=== PATIENT | female | born 1980 | race African-American/Black ===

== ENCOUNTER 2017-08-02 08:54 | Observation (INO) | payer MEDICAID | END 2017-08-02 10:26 | disposition home or self-care (01) | LOC: L&D 08:54 | PROVIDERS: ADMIT Specialist; ATTEND Specialist | DX: O26.893 Other specified pregnancy related conditions, third trimester (principal); R10.9 Unspecified abdominal pain; Z3A.35 35 weeks gestation of pregnancy | CPT/HCPCS: 99281; G0378 ==

== ENCOUNTER 2019-02-10 08:40 | Inpatient (IN) | payer MEDICAID ==
[~2019-02-10] VITALS: Ht 157.5 cm; Wt 62.6 kg
[~2019-02-10 08:40] MED LIST: PNV1TABL76 MT
[2019-02-10] MEDS ORDERED: NALOXONE HCL 0.4 MG/ML 1ML VIAL IM PRN (09:30)
[2019-02-10] MEDS ORDERED: CARBOPROST TROMETHAMINE 250 MCG/ML AMPUL IM PRN (09:30)
[2019-02-10] MEDS ORDERED: DEXT 5%/LR + PITOCIN 20UNITS/L 1,000 ML IV PRN (09:30)
[2019-02-10] MEDS ORDERED: LIDOCAINE HCL 1% 20ML VIAL (Pyxis) INJ INFIL PRN (09:30)
[2019-02-10] MEDS ORDERED: MISOPROSTOL 200MCG TABLET VG PRN (09:30)
[2019-02-10] MEDS ORDERED: METHYLERGONOVINE MALEATE 0.2 MG/ML IM PRN (09:30)
[2019-02-10] MEDS: LACTATED RINGERS 1,000 ML IV SCH ×3 (09:44→22:01)
[2019-02-10] MEDS ORDERED: MAGNESIUM 20 G PREMIX (L & D) 500 ML IV SCH (09:54)
[2019-02-10] MEDS ORDERED: MAGNESIUM 4 G PREMIX 100 ML IV SCH (10:00)
[2019-02-10] MEDS: BETAMETHASONE ACET/BETAMET 30 MG/5 ML VIAL IM SCH (10:09)
[2019-02-10 10:15] LABS: BASOPHILS % 0.3 % (0.0-2.0); EOSINOPHILS % 0.6 % (0.0-5.0); HEMATOCRIT. 34.4 % (36.0-48.0); HEMOGLOBIN. 11.5 g/dL (12.0-16.0); MEAN CORPUSCULAR HEMOGLOBIN 27.7 pg (28.0-32.0); MEAN CORPUSCULAR VOLUME 82.6 fL (81.0-99.0); MEAN PLATELET VOLUME 9.9 fl (7.4-10.4); MONOCYTES % 7.4 % (2.0-8.0); NEUTROPHILS % 72.7 % (40.0-76.0); PLATELET 316 x1000/uL (130-400); RED BLOOD CELL COUNT 4.16 mill/uL (4.2-5.4); RED CELL DISTRIBUTION WIDTH 13.4 % (11.6-14.6)
[2019-02-10] MEDS ORDERED: CLINDAMYCIN 900 MG PREMIX 50 ML IV SCH (10:15)
[2019-02-10 10:21] LABS: CLARITY URINE CLOUDY (CLEAR); COLOR URINE YELLOW (YELLOW); KETONES URINE NEGATIVE (NEGATIVE); LEUKOCYTE ESTERASE URINE TRACE (NEGATIVE); NITRITE URINE NEGATIVE (NEGATIVE); OCCULT BLOOD URINE NEGATIVE (NEGATIVE); PROTEIN URINE 2+ (NEGATIVE); SPECIFIC GRAVITY URINE 1.014 (1.005-1.030); UROBILINOGEN URINE 0.2 E.U./dL (0.2-1.0)
[2019-02-10 10:23] LABS: CHLORIDE 105 mEq/L (98-107)
[2019-02-10 10:24] LABS: INR 0.9; PARTIAL THROMBOPLASTIN TIME 28.3 sec (23.4-31.0); PROTHROMBIN TIME 9.4 sec (9.6-11.0)
[2019-02-10] MEDS ORDERED: MAGNESIUM SULFATE 20 GM in DEXT 5% WATER 460 ML IV ONE (10:30)
[2019-02-10 10:39] LABS: *AMPHETAMINES SCREEN URINE NEGATIVE (NEGATIVE); *BARBITURATES SCREEN URINE NEGATIVE (NEGATIVE)
[2019-02-10 10:40] LABS: *BENZODIAZEPINES SCREEN URINE NEGATIVE (NEGATIVE); *COCAINE SCREEN URINE NEGATIVE (NEGATIVE); METHADONE URINE SCREEN NEGATIVE (NEGATIVE); OPIATES URINE SCREEN NEGATIVE (NEGATIVE); PHENCYCLIDINE URINE SCREEN NEGATIVE (NEGATIVE)
[2019-02-10 11:05] LABS: CANNABINOID URINE SCREEN PRESUMTIVE POSITIVE (NEGATIVE)
[2019-02-10] MEDS: AZITHROMYCIN 500 MG in DEXT 5% WATER 250 ML IV SCH (12:17)
[2019-02-10 13:28] LABS: HEPATITIS B SURFACE ANTIGEN NEGATIVE
[2019-02-10] MEDS: CLINDAMYCIN 600MG PREMIX 50 ML IV SCH (18:21)
[2019-02-10] MEDS ORDERED: DEXTROSE 50% WATER 50ML SYRINGE IV PRN (19:00)
[2019-02-10] MEDS: BUTORPHANOL TARTRATE 2 MG/ML VIAL IV PRN (20:58)
[2019-02-10] MEDS: INSULIN LISPRO 100 UNITS/ML SUBCUT SCH (21:00)
[2019-02-11] MEDS: AZITHROMYCIN 500 MG in DEXT 5% WATER 250 ML IV SCH (00:26)
[2019-02-11] MEDS ORDERED: MAGNESIUM 2 G PREMIX 50 ML IV ONE (00:45)
[2019-02-11] MEDS ORDERED: LACTATED RINGERS 1,000 ML IV NR (02:00)
[2019-02-11] MEDS: BUTORPHANOL TARTRATE 2 MG/ML VIAL IV PRN (02:10)
[2019-02-11] MEDS: CLINDAMYCIN 600MG PREMIX 50 ML IV SCH ×3 (03:00→18:35)
[2019-02-11] MEDS ORDERED: SODIUM CHLORIDE 0.9% IV SCH ×2 (03:30)
[2019-02-11] MEDS ORDERED: MAGNESIUM IV SCH ×2 (03:30)
[2019-02-11] MEDS: MAGNESIUM SULFATE IV SCH ×3 (04:13→19:52)
[2019-02-11] MEDS: SODIUM CHLORIDE 0.9% IV SCH ×3 (04:13→19:52)
[2019-02-11] MEDS: LACTATED RINGERS 1,000 ML IV SCH (06:31)
[2019-02-11] MEDS: INSULIN LISPRO 100 UNITS/ML SUBCUT SCH (09:00)
[2019-02-11] MEDS: ONDANSETRON HCL 4MG/2ML INJ IV PRN (09:45)
[2019-02-11] MEDS ORDERED: LACTATED RINGERS 1,000 ML IV SCH (10:00)
[2019-02-11] MEDS: PRENATAL VIT/FE FUMARATE/FA TABLET PO SCH (10:11)
[2019-02-11] MEDS: BETAMETHASONE ACET/BETAMET 30 MG/5 ML VIAL IM SCH (10:12)
[2019-02-11] MEDS: ACETAMINOPHEN 500MG TABLET PO PRN (18:53)
[2019-02-11] MEDS: ZOLPIDEM TARTRATE 5MG TABLET PO PRN (23:30)
[2019-02-12] MEDS: ACETAMINOPHEN 500MG TABLET PO PRN ×2 (00:09→08:30)
[2019-02-12] MEDS ORDERED: AZITHROMYCIN 500 MG in DEXT 5% WATER 250 ML IV SCH (01:00)
[2019-02-12] MEDS: CLINDAMYCIN 600MG PREMIX 50 ML IV SCH (03:10)
[2019-02-12 10:58] LABS: MEAN CORPUSCULAR HEMOGLOBIN 27.5 pg (28.0-32.0); MEAN CORPUSCULAR VOLUME 82.7 fL (81.0-99.0); MEAN PLATELET VOLUME 9.5 fl (7.4-10.4); PLATELET 305 x1000/uL (130-400); RED CELL DISTRIBUTION WIDTH 13.6 % (11.6-14.6)
[2019-02-12] MEDS: ONDANSETRON HCL 4MG/2ML INJ IV PRN (11:12)
[2019-02-12] MEDS ORDERED: BUTORPHANOL TARTRATE 2 MG/ML VIAL IV PRN (12:00)
[2019-02-12 12:48] LABS: PLATELET ESTIMATE NORMAL
[2019-02-12 13:34] VITALS: BP 129/75
[2019-02-12 14:26] VITALS: BP 127/72
[2019-02-12 16:59] VITALS: BP 128/77
[2019-02-12] MEDS ORDERED: RHO(D) IMMUNE GLOBULIN 300 MCG/SYR IM PRN (19:00)
[2019-02-12] MEDS ORDERED: IBUPROFEN 400MG TABLET PO PRN (19:00)
[2019-02-12 19:30] VITALS: BP 115/77
[2019-02-12] MEDS: IBUPROFEN 800MG TABLET PO PRN (19:59)
[2019-02-13] MEDS: IBUPROFEN 800MG TABLET PO PRN ×4 (01:19→21:29)
[2019-02-13 04:00] VITALS: BP 91/41
[2019-02-13 07:41] LABS: BASOPHILS % 0.1 % (0.0-2.0); EOSINOPHILS % 0.1 % (0.0-5.0); HEMOGLOBIN. 9.8 g/dL (12.0-16.0); LYMPHOCYTES % 8.8 % (20.0-50.0); MEAN CORPUSCULAR HEMOGLOBIN 27.1 pg (28.0-32.0); MEAN PLATELET VOLUME 9.7 fl (7.4-10.4); MONOCYTES % 7.5 % (2.0-8.0); NEUTROPHILS % 83.5 % (40.0-76.0); PLATELET 258 x1000/uL (130-400); RED BLOOD CELL COUNT 3.62 mill/uL (4.2-5.4); RED CELL DISTRIBUTION WIDTH 13.4 % (11.6-14.6)
[2019-02-13 08:00] VITALS: BP 90/70
[2019-02-13] MEDS: PRENATAL VIT/FE FUMARATE/FA TABLET PO SCH ×2 (08:13→09:00)
[2019-02-13 12:00] VITALS: BP 92/66
[2019-02-13 15:41] VITALS: BP 123/84
[2019-02-13 19:30] VITALS: BP 103/62
[2019-02-13 21:29] VITALS: BP 130/92
[2019-02-13] MEDS: ZOLPIDEM TARTRATE 5MG TABLET PO PRN (21:29)
[2019-02-13] MEDS ORDERED: BISACODYL 10MG SUPP PR PRN (21:45)
[2019-02-13] MEDS ORDERED: BISACODYL 5MG TABLET PO PRN (21:45)
[2019-02-14 04:07] LABS: CANNABINOID CONFIRMATION URINE Positive (.)
[2019-02-14] MEDS: IBUPROFEN 800MG TABLET PO PRN ×2 (05:38→10:56)
[2019-02-14 05:45] VITALS: BP 129/77
[2019-02-14] MEDS ORDERED: IBUP-2030 PO (07:00)
[2019-02-14] MEDS ORDERED: FERR325T6 MT (07:00)
[2019-02-14 07:44] LABS: BASOPHILS % 0.2 % (0.0-2.0); EOSINOPHILS % 0.3 % (0.0-5.0); HEMATOCRIT. 33.6 % (36.0-48.0); HEMOGLOBIN. 10.8 g/dL (12.0-16.0); LYMPHOCYTES % 15.3 % (20.0-50.0); MEAN CORPUSCULAR HEMOGLOBIN 26.9 pg (28.0-32.0); MEAN CORPUSCULAR VOLUME 83.5 fL (81.0-99.0); MONOCYTES % 6.9 % (2.0-8.0); NEUTROPHILS % 77.3 % (40.0-76.0); PLATELET 290 x1000/uL (130-400); RED BLOOD CELL COUNT 4.02 mill/uL (4.2-5.4); RED CELL DISTRIBUTION WIDTH 13.7 % (11.6-14.6)
[2019-02-14] MEDS: PRENATAL VIT/FE FUMARATE/FA TABLET PO SCH (08:22)
[2019-02-14 08:53] VITALS: BP 120/68
[2019-02-14 10:56] VITALS: BP 120/68
== END 2019-02-14 14:00 | disposition home or self-care (01) | DRG 560 ==
LOC: 8 EST LDRP 08:40 → OBSVTOIN 08:40 → 8 EST LDRP 02-11 14:01 → 8EST 02-12 13:00
PROVIDERS: ADMIT Obstetrics & Gynecology; ATTEND Obstetrics & Gynecology
PROC: 10E0XZZ Delivery of Products of Conception, External Approach (ICD-10-PCS; principal; 2019-02-12)
DX: O42.013 Preterm premature rupture of membranes, onset of labor within 24 hours of rupture, third trimester (principal); O60.14X0 Preterm labor third trimester with preterm delivery third trimester, not applicable or unspecified; O41.03X0 Oligohydramnios, third trimester, not applicable or unspecified; O24.429 Gestational diabetes mellitus in childbirth, unspecified control; O99.324 Drug use complicating childbirth; O99.02 Anemia complicating childbirth; D57.3 Sickle-cell trait; Z37.0 Single live birth; Z3A.32 32 weeks gestation of pregnancy; F12.10 Cannabis abuse, uncomplicated
CPT/HCPCS: 36415; 59412; 76805; 76818; 80305; 80349; 81003; 82947; 82962; 83735; 86592; 86703; 86762; 86850; 86900; 87340; 99281; G0378; J0456; J0595; J0702; J2405; J2590; J3475; J3490; J7040; J7060; J7120; A4315

== ENCOUNTER 2022-07-25 12:28 | Emergency (ER) | payer MEDICAID ==
[~2022-07-25] VITALS: Ht 157.5 cm; Wt 59.0 kg
[~2022-07-25 12:28] MED LIST changes: +FERR325T6 MT; +IBUP-2030 PO
[2022-07-25 12:42] VITALS: BP 117/68
[2022-07-25] MEDS ORDERED: DOXY150T5 MT (13:02)
[2022-07-25] MEDS ORDERED: BACITRACIN ZINC OINT UDPKT TOP ONE (13:15)
== END 2022-07-25 13:18 | disposition home or self-care (01) ==
LOC: ER 13:17
DX: S90.512A Abrasion, left ankle, initial encounter (principal); Z88.0 Allergy status to penicillin; W22.8XXA Striking against or struck by other objects, initial encounter; Y93.89 Activity, other specified; Y92.89 Other specified places as the place of occurrence of the external cause; Y99.8 Other external cause status
CPT/HCPCS: 99282; Z7610

== ENCOUNTER 2023-02-18 13:21 | Emergency (ER) | payer MEDICAID ==
[~2023-02-18] VITALS: Ht 154.9 cm; Wt 61.3 kg
[~2023-02-18 13:21] MED LIST changes: +DOXY150T5 MT
[2023-02-18 13:29] VITALS: BP 142/96; O2SAT 100
[2023-02-18 17:45] VITALS: PULSE 78; RESP 16; TEMP 98.8
[2023-02-23 19:09] LABS: CHLAMYDIA TRACHOMATIS NAA Negative (Negative); NEISSERIA GONORRHOEAE NAA Negative (Negative)
== END 2023-02-18 17:45 | disposition home or self-care (01) ==
LOC: ER 13:21
DX: T19.2XXA Foreign body in vulva and vagina, initial encounter (principal); W44.9XXA Unspecified foreign body entering into or through a natural orifice, initial encounter
CPT/HCPCS: 87491; 87591; 87210; 99284; Z7610

== ENCOUNTER 2024-10-16 13:20 | Emergency (ER) | payer MEDICAID ==
[~2024-10-16] VITALS: Ht 154.9 cm; Wt 59.0 kg
[~2024-10-16 13:20] MED LIST changes: -DOXY150T5 MT; +DOXY150T8 MT
[2024-10-16 13:24] VITALS: O2SAT 100
[2024-10-16] MEDS: ONDANSETRON HCL 4MG/2ML INJ IV ONE (13:54)
[2024-10-16] MEDS: SODIUM CHLORIDE 0.9% 1,000 ML IV ONE (13:54)
[2024-10-16] MEDS: PANTOPRAZOLE SODIUM 40 MG/VIAL IV ONE (13:54)
[2024-10-16 14:11] LABS: BASOPHILS % 0.7 % (0.0-2.0); EOSINOPHILS % 0.7 % (0.0-5.0); HEMATOCRIT. 43.3 % (36.0-48.0); HEMOGLOBIN. 14.3 g/dL (12.0-16.0); LYMPHOCYTES % 31.0 % (20.0-50.0); MEAN PLATELET VOLUME 8.7 fl (7.4-10.4); MONOCYTES % 10.6 % (2.0-8.0); NEUTROPHILS % 57.0 % (40.0-76.0); PLATELET 341 x1000/uL (130-400); RED BLOOD CELL COUNT 5.28 mill/uL (4.2-5.4); RED CELL DISTRIBUTION WIDTH 14.5 % (11.6-14.6)
[2024-10-16 14:26] LABS: CREATININE 1.1 mg/dL (0.6-1.0); TROPONIN I HIGH SENSITIVITY 4 ng/L (3.0-34); UREA NITROGEN BLOOD 14 mg/dL (9-23)
[2024-10-16 16:46] LABS: TROPONIN I HIGH SENSITIVITY < 4 ng/L (3.0-34)
[2024-10-16] MEDS ORDERED: MAG-55 MT (17:53)
[2024-10-16] MEDS ORDERED: PROT20 MT (17:53)
[2024-10-16] MEDS ORDERED: TOPUD MT (17:53)
[2024-10-16] MEDS ORDERED: ONDA4TAB50 MT (17:53)
[2024-10-16 18:33] VITALS: BP 136/62; PULSE 82; RESP 16; TEMP 36.7; O2SAT 100
== END 2024-10-16 18:39 | disposition home or self-care (01) ==
LOC: ER 13:20 → CMPBEDREQ 10-17 07:43
DX: K29.00 Acute gastritis without bleeding (principal); F17.210 Nicotine dependence, cigarettes, uncomplicated; E11.9 Type 2 diabetes mellitus without complications; I10 Essential (primary) hypertension; Z88.0 Allergy status to penicillin; Z90.49 Acquired absence of other specified parts of digestive tract
CPT/HCPCS: 80048; 83880; 83690; 85025; 84484; 36415; 71045; 93005; 96361; 96374; 96375; 99285; J2405; J2470; J7030; Z7610 ×2; A4606

== ENCOUNTER 2024-11-21 07:23 | Emergency (ER) | payer SELFPAY ==
[~2024-11-21] VITALS: Ht 154.9 cm; Wt 59.0 kg
[~2024-11-21 07:23] MED LIST changes: +MAG-55 MT; +ONDA4TAB50 MT; +PROT20 MT; +TOPUD MT
[2024-11-21 07:26] VITALS: O2SAT 100
[2024-11-21 07:50] VITALS: BP 149/90; PULSE 69; RESP 17; TEMP 36.7; O2SAT 99
[2024-11-21 08:11] LABS: BASOPHILS % 0.9 % (0.0-2.0); EOSINOPHILS % 1.6 % (0.0-5.0); HEMATOCRIT. 43.2 % (36.0-48.0); HEMOGLOBIN. 14.0 g/dL (12.0-16.0); LYMPHOCYTES % 32.6 % (20.0-50.0); MEAN PLATELET VOLUME 8.6 fl (7.4-10.4); MONOCYTES % 9.8 % (2.0-8.0); NEUTROPHILS % 55.1 % (40.0-76.0); PLATELET 312 x1000/uL (130-400); RED BLOOD CELL COUNT 5.30 mill/uL (4.2-5.4); RED CELL DISTRIBUTION WIDTH 14.4 % (11.6-14.6)
[2024-11-21 08:12] LABS: CLARITY URINE TURBID (CLEAR); COLOR URINE RED (YELLOW); GLUCOSE URINE NEGATIVE (NEGATIVE); KETONES URINE NEGATIVE (NEGATIVE); LEUKOCYTE ESTERASE URINE 2+ (NEGATIVE); NITRITE URINE NEGATIVE (NEGATIVE); OCCULT BLOOD URINE 3+ (NEGATIVE); PH URINE 5.0 (4.5-8.0); PROTEIN URINE 2+ (NEGATIVE); SPECIFIC GRAVITY URINE 1.023 (1.005-1.030); UROBILINOGEN URINE 0.2 E.U./dL (0.2-1.0)
[2024-11-21 08:25] LABS: CREATININE 1.2 mg/dL (0.6-1.0); UREA NITROGEN BLOOD 9 mg/dL (9-23)
[2024-11-21 08:27] LABS: ASPARTATE AMINOTRANSFERASE 13 IU/L (<34); BILIRUBIN DIRECT 0.1 mg/dL (<=3.0); BILIRUBIN TOTAL 0.6 mg/dL (0.1-1.0); PROTEIN TOTAL 6.9 g/dL (6.0-8.3)
[2024-11-21 08:29] LABS: B-HCG QUANTITATIVE < 1 mIU/mL (<6)
[2024-11-21 08:30] LABS: WBC URINE 50-100 /hpf (0-2)
[2024-11-21 08:31] LABS: BACTERIA URINE 4+; SQUAMOUS EPITHELIAL CELL URINE 3+ /lpf (RARE/1+); YEAST URINE NONE SEEN
[2024-11-21 08:38] LABS: TRICHOMONAS URINE 2+
[2024-11-21 10:07] VITALS: TEMP 98.1
[2024-11-21] MEDS: ACETAMINOPHEN 325MG TABLET PO ONE (10:07)
[2024-11-21] MEDS ORDERED: METR-167 MT (10:40)
[2024-11-21] MEDS ORDERED: CEFP200T13 MT (10:40)
== END 2024-11-21 11:16 | disposition home or self-care (01) ==
LOC: ER 07:23
DX: O23.41 Unspecified infection of urinary tract in pregnancy, first trimester (principal); O20.9 Hemorrhage in early pregnancy, unspecified; O16.1 Unspecified maternal hypertension, first trimester; O98.311 Other infections with a predominantly sexual mode of transmission complicating pregnancy, first trimester; A59.9 Trichomoniasis, unspecified; O24.111 Pre-existing type 2 diabetes mellitus, in pregnancy, first trimester; O26.891 Other specified pregnancy related conditions, first trimester; Z90.49 Acquired absence of other specified parts of digestive tract; Z79.899 Other long term (current) drug therapy; Z88.0 Allergy status to penicillin; Z3A.01 Less than 8 weeks gestation of pregnancy
CPT/HCPCS: 36415; 74176; 76830; 76856; 80048; 80076; 81003; 81025; 84702; 85025; 86850; 86900; 99284

== ENCOUNTER 2024-12-17 15:14 | Emergency (ER) | payer SELFPAY ==
[~2024-12-17] VITALS: Ht 154.9 cm; Wt 60.0 kg
[~2024-12-17 15:14] MED LIST changes: +CEFP200T13 MT; +METR-167 MT
[2024-12-17 15:30] VITALS: O2SAT 95
[2024-12-17 15:58] VITALS: TEMP 36.6; O2SAT 100
[2024-12-17 17:56] LABS: BASOPHILS % 1.3 % (0.0-2.0); EOSINOPHILS % 1.5 % (0.0-5.0); HEMATOCRIT. 44.2 % (36.0-48.0); HEMOGLOBIN. 14.3 g/dL (12.0-16.0); LYMPHOCYTES % 38.9 % (20.0-50.0); MEAN PLATELET VOLUME 8.2 fl (7.4-10.4); MONOCYTES % 8.3 % (2.0-8.0); NEUTROPHILS % 50.0 % (40.0-76.0); PLATELET 328 x1000/uL (130-400); RED BLOOD CELL COUNT 5.39 mill/uL (4.2-5.4); RED CELL DISTRIBUTION WIDTH 14.5 % (11.6-14.6)
[2024-12-17 18:11] LABS: CREATININE 1.2 mg/dL (0.6-1.0); UREA NITROGEN BLOOD 10.0 mg/dL (9-23)
[2024-12-17 18:42] LABS: GLUCOSE URINE NEGATIVE (NEGATIVE); KETONES URINE TRACE (NEGATIVE); LEUKOCYTE ESTERASE URINE NEGATIVE (NEGATIVE); NITRITE URINE NEGATIVE (NEGATIVE); OCCULT BLOOD URINE NEGATIVE (NEGATIVE); PH URINE 5.5 (4.5-8.0); PROTEIN URINE TRACE (NEGATIVE); SPECIFIC GRAVITY URINE 1.027 (1.005-1.030); UROBILINOGEN URINE 0.2 E.U./dL (0.2-1.0)
[2024-12-17 19:02] LABS: CLARITY URINE SL HAZY (CLEAR); COLOR URINE YELLOW (YELLOW)
[2024-12-17 19:05] LABS: BACTERIA URINE TRACE; RBC URINE NONE SEEN /hpf (0-2); SQUAMOUS EPITHELIAL CELL URINE 2+ /lpf (RARE/1+); WBC URINE NONE SEEN /hpf (0-2)
[2024-12-17 20:43] VITALS: BP 123/77; PULSE 66; RESP 16
[2024-12-17] MEDS: KETOROLAC 30MG/ML VIAL IM ONE (20:43)
[2024-12-18] MEDS ORDERED: METR-167 MT (10:08)
== END 2024-12-17 22:02 | disposition left against medical advice (07) ==
LOC: ER 15:14
DX: R10.20 Pelvic and perineal pain unspecified side (principal); E11.9 Type 2 diabetes mellitus without complications; I10 Essential (primary) hypertension; Z79.899 Other long term (current) drug therapy; Z88.0 Allergy status to penicillin; Z98.890 Other specified postprocedural states
CPT/HCPCS: 99284; 80048; 81003; 81025; 85025; 36415; 96372; J1885

== ENCOUNTER 2024-12-18 08:24 | Emergency (ER) | payer SELFPAY ==
[~2024-12-18] VITALS: Ht 157.5 cm; Wt 70.0 kg
[2024-12-18 08:29] VITALS: BP 136/95; O2SAT 99
[2024-12-18 08:31] VITALS: PULSE 88; RESP 20; O2SAT 99
[2024-12-18] MEDS ORDERED: METR-167 MT (10:08)
== END 2024-12-18 10:17 | disposition home or self-care (01) ==
LOC: ER 08:24
DX: R10.9 Unspecified abdominal pain (principal); A59.9 Trichomoniasis, unspecified; E11.9 Type 2 diabetes mellitus without complications; I10 Essential (primary) hypertension; Z88.0 Allergy status to penicillin
CPT/HCPCS: 99282